=== PATIENT | female | born 2000 | race Caucasian/White ===

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

== ENCOUNTER 2020-09-08 22:04 | Emergency (ER) | payer BC, OTHER ==
[~2020-09-08] VITALS: Ht 165.1 cm; Wt 57.2 kg
[2020-09-08 22:19] VITALS: BP 124/80
--- NOTE | 2020-09-08 22:53 | NUR ---
AMBULATED TO ER BED 3
--- NOTE | 2020-09-08 22:54 | NUR ---
PATIENT PRESENTS TO ED WITH BUG BITE ON THE BACK . PT STATES IT HURTS WHEN PALPATED, WALKING, AND BENDING DOWN . DENIES N/V/D; SKIN IS PINK/WARM/DRY; AAOX4 WITH EVEN AND STEADY GAIT; LUNGS CLEAR BL; HR EVEN AND REGULAR; PT DENIES ANY FEVER, CP, SOB, OR COUGH AT THIS TIME; PATIENT STATES PAIN OF 10/10 THAT FEELS SHARP AND BURNING AT THIS TIME; VSS; PATIENT POSITIONED FOR COMFORT; HOB ELEVATED; BEDRAILS UP X2; BED DOWN. ER MD MADE AWARE OF PT STATUS. PMH: ASTHMA, APPENDIX REMOVAL ALLERGIES: IBUPROFEN
[2020-09-08] MEDS ORDERED: ONDANSETRON 4 MG/2 ML VIAL IVP ONE (23:00)
[2020-09-08] MEDS ORDERED: MORPHINE SULFATE 4 MG/ML SYR IVP ONE (23:00)
--- NOTE | 2020-09-08 23:09 | NUR ---
ERMD AT BEDSIDE FOR EXAMINATION
--- NOTE | 2020-09-08 23:23 | NUR ---
ERMD AT BEDSIDE WITH ULTRASOUND TO EXAMINE BUG BITE ON THE BACK.
[2020-09-08] MEDS ORDERED: LIDOCAINE 2% 1000 MG/50 ML VIAL INJ ONE (23:25)
[2020-09-08] MEDS ORDERED: HYDROcodone/APAP 5/325 MG 1 TAB TAB PO ONE (23:25)
--- NOTE | 2020-09-09 00:10 | NUR ---
I&D done by RIGO RN at bedside for assistance.
[2020-09-09] MEDS ORDERED: CEPH-588 PO (00:34)
[2020-09-09] MEDS ORDERED: IBUP-1842 PO (00:34)
[2020-09-09] MEDS ORDERED: ACET-8386 PO (00:34)
[2020-09-09] MEDS ORDERED: SULF-58 PO (00:34)
[2020-09-09 00:57] VITALS: BP 110/70
--- NOTE | 2020-09-09 00:57 | NUR ---
Patient discharged with v/s stable. Written and verbal after care instructions given and explained. Patient alert, oriented and verbalized understanding of instructions. Ambulatory with steady gait. All questions addressed prior to discharge. ID band removed. Patient advised to follow up with PMD. Rx of Beverly, keflex, motrin, bactrim given. Patient educated on indication of medication including possible reaction and side effects. Opportunity to ask questions provided and answered.
== END 2020-09-09 00:57 | disposition home or self-care (01) ==
LOC: MED 22:04
DX: L03.312 Cellulitis of back [any part except buttock and flank] (principal); M54.9 Dorsalgia, unspecified
CPT/HCPCS: 10060; 99283; J2001

== ENCOUNTER 2020-09-11 21:19 | Emergency (ER) | payer OTHER ==
[~2020-09-11] VITALS: Ht 162.6 cm; Wt 56.7 kg
[~2020-09-11 21:19] MED LIST changes: +ACET-8386 PO; +CEPH-588 PO; +IBUP-1842 PO; +SULF-58 PO
[2020-09-11 21:24] VITALS: BP 122/84
--- NOTE | 2020-09-11 21:30 | NUR ---
20/F BIB SELF FOR WOUND RECHECK S/P I&D ON THE LOWER BACK. PT VERBALIZED MILD DISCHARGE. DRESSING IN PLACE. NKDA. PMH:ASTHMA
--- NOTE | 2020-09-11 21:34 | NUR ---
DR. ENCARNCAION AT BEDSIDE EXAMINING PATIENT
[2020-09-11 21:51] VITALS: BP 122/84
--- NOTE | 2020-09-11 22:27 | NUR ---
Patient discharged with v/s stable. Written and verbal after care instructions given and explained. Patient verbalized understanding. Ambulatory with steady gait. All questions addressed prior to discharge. Advised to follow up with PMD.
== END 2020-09-11 21:51 | disposition home or self-care (01) ==
LOC: MED 21:19
DX: L02.212 Cutaneous abscess of back [any part, except buttock and flank] (principal); J45.909 Unspecified asthma, uncomplicated; Z79.899 Other long term (current) drug therapy
CPT/HCPCS: 99281

== ENCOUNTER 2020-11-21 15:47 | Emergency (ER) | payer OTHER ==
[~2020-11-21] VITALS: Ht 162.6 cm; Wt 54.4 kg
[2020-11-21 16:00] VITALS: BP 134/91
[2020-11-21] MEDS ORDERED: ACETAMINOPHEN EXTRA STRENGTH 500 MG TAB PO ONE (16:50)
[2020-11-21] MEDS ORDERED: ACET-10509 PO (16:55)
--- NOTE | 2020-11-21 16:56 | NUR ---
BG CHRISTIANSON C/O R KNEE PAIN AFTER BENDING AT WORK X TODAY. PMH: ASTHMA
--- NOTE | 2020-11-21 17:01 | NUR ---
PT PLACED IN RIGHT KNEE IMMOBILIZOR [facility] WNL BEFORE AND AFTER. PT ALSO GIVEN CRUTCHES THAT WERE ADJUSTED TO PTS SIZE AND HEIGHT. PT SHOWED PROPER DEMONSTRATION OF CRUTCHES. PT HAD NO FURTHER QUESTIONS
[2020-11-21 17:14] VITALS: BP 134/91
--- NOTE | 2020-11-21 17:14 | NUR ---
Patient discharged with v/s stable. Written and verbal after care instructions given and explained. Patient alert, oriented and verbalized understanding of instructions. Ambulatory with CRUTCHES. All questions addressed prior to discharge. ID band removed. Patient advised to follow up with PMD. Rx of ACETAMINOPHEN given. Patient educated on indication of medication including possible reaction and side effects. Opportunity to ask questions provided and answered.
== END 2020-11-21 17:14 | disposition home or self-care (01) ==
LOC: MED 15:47
DX: M25.561 Pain in right knee (principal); X58.XXXA Exposure to other specified factors, initial encounter; Y93.89 Activity, other specified; Y92.89 Other specified places as the place of occurrence of the external cause; Y99.8 Other external cause status
CPT/HCPCS: 29505; 73562; 99283